=== PATIENT | male | born 1985 | race Caucasian/White ===

== ENCOUNTER 2021-04-21 11:55 | Inpatient (IN) | payer BC, OTHER ==
[2021-04-21 12:19] VITALS: BMI 26.6
[2021-04-21] MEDS ORDERED: BISMUTH SUBSALICYLATE 524 MG/30 ML PO PRN (13:45)
[2021-04-21] MEDS ORDERED: MAGNESIUM HYDROX 2400MG/30ML ORAL SUSPENSION 30 ML CUP PO PRN (13:45)
[2021-04-21] MEDS ORDERED: ONDANSETRON *ODT* 4 MG TABLET SL PRN (13:45)
[2021-04-21] MEDS ORDERED: MENTHOL/PHENOL 1 EACH UD MM PRN (13:45)
[2021-04-21] MEDS ORDERED: MAG HYDROX/AL HYDROX/SIMETH 30 ML UNIT-DOSE CUP PO PRN (13:45)
[2021-04-21] MEDS ORDERED: MAGNESIUM CITRATE 300 ML BOTTLE PO PRN (13:45)
[2021-04-21] MEDS ORDERED: ACETAMINOPHEN 325 MG TABLET (FP) PO PRN ×2 (13:45)
[2021-04-21] MEDS: diazePAM 5 MG TABLET PO SCH ×3 (14:43→22:40)
[2021-04-21] MEDS: LOSARTAN POTASSIUM 50 MG TABLET PO SCH (14:44)
[2021-04-21] MEDS: hydrOXYzine PAMOATE 25 MG CAPSULE (FP) PO SCH ×3 (14:44→22:38)
[2021-04-21] MEDS: METHOCARBAMOL 500 MG TABLET PO PRN (14:44)
[2021-04-21] MEDS: diazePAM 5 MG TABLET PO PRN (14:44)
[2021-04-21] MEDS: PRENATAL VITAMINS W/ FOLIC ACID TABLET (FP) PO SCH (14:45)
[2021-04-21 17:02] LABS: CALCIUM 9.1 mg/dL (8.5-10.1); HEMATOCRIT 43.6 % (35.4-49); MCH 32.5 pg (25.7-33.7); MCHC 34.3 g/dl (32.0-35.9); MEAN CELL VOLUME 94.6 fl (80-96); MEAN PLT VOLUME 7.1 fl (7.5-11.1); PLATELET COUNT 343 10^3/uL (134-434); RBC 4.61 M/mm3 (4.00-5.60); RDW 14.2 % (11.9-15.9); WHITE BLOOD COUNT 5.3 K/mm3 (4.0-10.0)
[2021-04-21 17:03] LABS: ALBUMIN 3.8 g/dl (3.4-5.0)
[2021-04-21 17:05] LABS: CREATININE 0.8 mg/dL (0.55-1.3)
[2021-04-21 17:07] LABS: TOT PROT 7.8 g/dl (6.4-8.2)
[2021-04-21 17:58] LABS: HIV INTERPRETATION NEGATIVE (NEGATIVE)
[2021-04-21] MEDS: MELATONIN 5 MG TABLETS PO SCH (22:39)
[2021-04-21] MEDS: THIAMINE HCL 100 MG TABLET (FP) PO SCH (22:39)
[2021-04-22] MEDS: diazePAM 5 MG TABLET PO SCH ×4 (05:29→22:11)
[2021-04-22] MEDS: hydrOXYzine PAMOATE 25 MG CAPSULE (FP) PO SCH ×5 (05:29→22:12)
[2021-04-22] MEDS: METHOCARBAMOL 500 MG TABLET PO PRN ×2 (05:31→22:10)
[2021-04-22] MEDS: LOSARTAN POTASSIUM 50 MG TABLET PO SCH (10:16)
[2021-04-22] MEDS: PRENATAL VITAMINS W/ FOLIC ACID TABLET (FP) PO SCH (10:16)
[2021-04-22] MEDS: diazePAM 5 MG TABLET PO PRN (13:35)
[2021-04-22] MEDS: IBUPROFEN 400 MG TABLET (FP) PO PRN ×2 (13:35→23:41)
[2021-04-22 20:54] VITALS: BP 156/90; PULSE 75; TEMP 97.1
[2021-04-22] MEDS: MELATONIN 5 MG TABLETS PO SCH (22:10)
[2021-04-22] MEDS: THIAMINE HCL 100 MG TABLET (FP) PO SCH (22:10)
[2021-04-23] MEDS ORDERED: diazePAM 5 MG TABLET PO SCH (06:00)
[2021-04-23] MEDS: hydrOXYzine PAMOATE 25 MG CAPSULE (FP) PO SCH (06:40)
[2021-04-23] MEDS ORDERED: DULoxetine HCL 20 MG CAPSULE.DR PO SCH (10:00)
[2021-04-24] MEDS ORDERED: diazePAM 5 MG TABLET PO SCH (06:00)
[2021-04-25] MEDS ORDERED: diazePAM 5 MG TABLET PO ONE (06:00)
== END 2021-04-23 09:50 | disposition short-term general hospital (02) | DRG 897 ==
LOC: EDBD → YASAS 11:55 → Y3N 14:01
PROVIDERS: ADMIT Allergy & Immunology; ATTEND Allergy & Immunology
PROC: HZ2ZZZZ Detoxification Services for Substance Abuse Treatment (ICD-10-PCS; principal; 2021-04-21)
DX: F10.230 Alcohol dependence with withdrawal, uncomplicated (principal); F13.20 Sedative, hypnotic or anxiolytic dependence, uncomplicated; F12.20 Cannabis dependence, uncomplicated; F32.9 Major depressive disorder, single episode, unspecified; F41.9 Anxiety disorder, unspecified; I10 Essential (primary) hypertension; Z87.891 Personal history of nicotine dependence; S01.01XD Laceration without foreign body of scalp, subsequent encounter; Y08.89XD Assault by other specified means, subsequent encounter; Z88.0 Allergy status to penicillin; Z91.19 Patient's noncompliance with other medical treatment and regimen
CPT/HCPCS: 36415; 80053; 85027; 86780; 87389; 93005; 93010; C9803; U0003; U0005